=== PATIENT | male | born 2000 | race African-American/Black ===

== ENCOUNTER 2019-06-10 00:53 | Emergency (ER) | payer SELFPAY ==
[~2019-06-10] VITALS: Ht 177.8 cm; Wt 75.0 kg
[2019-06-10] MEDS ORDERED: HYDR25CA PO (01:10)
--- NOTE | 2019-06-10 01:11 | ED Psychosocial ---
General Stated Complaint: ANXIETY Source: patient, EMS Exam Limitations: no limitations History of Present Illness Date Seen by Provider: Jun 10, 2019 Time Seen by Provider: 00:50 Initial Comments Patient presents ER by EMS from the [facility] on . He is complaining of a panic attack. He says is having these before although not for many years. When he was in high school he said he took medications and depression. He says does not take any medicines now and has not follow-up with primary care doctor for many years. He does endorse some mild depression lately but denies any suicidal ideation. He says he is not looking for counseling. Says he was at home smoking a black and mild cigar when he started to feel his legs were weak his arms were shaky and his vision was changing. He denies any recent alcohol use although he does drink weekly typically liquor and wine.he denies any recreational drug use or other history of medical problems. Allergies and Home Medications Home Medications Hydroxyzine Pamoate 25 Mg Capsule, 25 MG PO Q6H PRN for ANXIETY Prescribed by: NITIN PAEZ on 06/10/19 0110 Patient Home Medication List Home Medication List Reviewed: Yes Review of Systems Constitutional: No chills, No diaphoresis EENTM: No ear discharge, No ear pain Respiratory: No cough, No short of breath Cardiovascular: No chest pain, No edema Gastrointestinal: No abdominal pain, No constipation, No diarrhea Genitourinary: No discharge, No dysuria Musculoskeletal: No back pain, No joint pain Skin: No pruritus, No rash Past Cnpjkrz-Sunthl-Ynmwvk Hx Patient Social History Alcohol Use: Occasionally Uses Alcohol Beverage of Choice: Wine, Cheap Liquor Recreational Drug Use: No Smoking Status: Current Everyday Smoker Type Used: Cigars 2nd Hand Smoke Exposure: No Recent Foreign Travel: No Contact w/Someone Who Travel: No Physical Exam Vital Signs - First Documented 06/10/19 00:53 Temp 36.6 Pulse 75 Resp 18 B/P (MAP) 162/92 (115) Pulse Ox 98 Capillary Refill : Height, Weight, BMI Height: '" Weight: lbs. oz. kg; BMI Method: General Appearance: WD/WN, no apparent distress HEENT: PERRL/EOMI, pharynx normal Neck: full range of motion, normal inspection Respiratory: lungs clear, normal breath sounds, no respiratory distress, no accessory muscle use Cardiovascular: normal peripheral pulses, regular rate, rhythm Peripheral Pulses: 2+ Radial Pulses (R), 2+ Radial Pulses (L) Gastrointestinal: non tender, soft Neurologic/Psychiatric: alert, normal mood/affect, oriented x 3 Appearance/Memory: appropriate appearance, appropriate insight, neat, no memory impairment Behavior/Eye Contact: cooperative, good eye contact, normal speech Thoughts/Hallucinations: normal thought pattern, no apparent hallucination Skin: warm/dry, other (round patches of hypo-pigmented skin anterior posterior trunk) Progress/Results/Core Measures Results/Orders Vital Signs/I&O 06/10/19 00:53 Temp 36.6 Pulse 75 Resp 18 B/P (MAP) 162/92 (115) Pulse Ox 98 Progress Progress Note : Time: 01:07 Progress Note Had a long discussion about behavioral therapy techniques how to use mild sedative such as Vistaril. We have encouraged him to follow-up with [facility]. Departure Impression Primary Impression: Panic attack Additional Impression: Tinea versicolor Disposition: HOME, SELF-CARE Condition: Stable Departure-Patient Inst. Decision time for Depature: 01:05 Patient Instructions: Cognitive-Behavioral Therapy, Panic Disorder (DC) Add. Discharge Instructions: At the first that you notice a panic attack starting remove yourself to a safe situation. If you are driving pullover. Focused on your breathing and perform some cognitive behavioral techniques as we discussed. Take a tablet of Vistaril every 6 hours as needed. It is a mild sedative. If you continue to have panic attacks then I would highly suggest you follow-up with a primary care doctor such as [facility]. For your skin you should curing pickling packer the cream that contains clotrimazole for athlete's foot or jock itch and apply it daily after bathing for 4 weeks. expect good results in about 6 months. Scripts Hydroxyzine Pamoate (Vistaril) 25 Mg Capsule 25 MG PO Q6H PRN for ANXIETY, #10 CAP 0 Refills Prov: NITIN PAEZ 06/10/19 NITIN PAEZ Jun 10, 2019 01:11 POS
[2019-06-10 01:19] VITALS: BP 162/92
== END 2019-06-10 01:19 | disposition home or self-care (01) ==
LOC: ER 00:55
DX: F41.0 Panic disorder [episodic paroxysmal anxiety] (principal); B36.0 Pityriasis versicolor; F32.9 Major depressive disorder, single episode, unspecified; F17.290 Nicotine dependence, other tobacco product, uncomplicated
CPT/HCPCS: 99283

== ENCOUNTER 2020-11-17 20:51 | Emergency (ER) | payer SELFPAY ==
[~2020-11-17] VITALS: Ht 177.8 cm; Wt 81.6 kg
[~2020-11-17 20:51] MED LIST: HYDR25CA PO
--- NOTE | 2020-11-17 21:21 | ED EENT ---
History of Present Illness General Chief Complaint: Cough/Cold/Flu Symptoms Stated Complaint: SORE THROAT/HEADACHE/COUGH Nursing Triage Note: PT AMBULATE TO ROOM 09 WITH C/O HEADACHE AND SORE THROAT SINCE THURSDAY. Source: patient Exam Limitations: no limitations History of Present Illness Date Seen by Provider: November 17, 2020 Time Seen by Provider: 21:08 Initial Comments This is a well-appearing 20-year-old male who presents to the ER with complaints of sore throat x2 days. States that the pain has been increasing and making it difficult to swallow. Has not taken anything for the pain prior to arrival. No ill contacts. No Covid exposures. Denies fever, shortness of breath, nausea, vomiting, diarrhea. Allergies and Home Medications Allergies Coded Allergies: No Known Drug Allergies (Unverified , 11/17/20) Home Medications Amoxicillin/Potassium Clav 1 Each Tablet, 1 EACH PO BID Prescribed by: KARIME KIRK on 11/17/202208 Hydroxyzine Pamoate 25 Mg Capsule, 25 MG PO Q6H PRN for ANXIETY Prescribed by: NITIN PAEZ on 06/10/19 0110 Patient Home Medication List Home Medication List Reviewed: Yes Review of Systems Review of Systems Constitutional: chills; No dizziness Eyes: No Symptoms Reported Ears: No Symptoms Reported Nose: no symptoms reported Mouth: no symptoms reported Throat: pain, painful swallowing Respiratory: cough; No phlegm, No short of breath, No wheezing Cardiovascular: no symptoms reported Gastrointestinal: no symptoms reported Musculoskeletal: no symptoms reported Skin: no symptoms reported Neurological: No Symptoms Reported Hematologic/Lymphatic: No Symptoms Reported Immunological/Allergic: no symptoms reported Past Kupqrqb-Elmhhk-Ulfwdb Hx Patient Social History Alcohol Use: Occasionally Uses Number of Drinks Today: CC Alcohol Beverage of Choice: Wine, Cheap Liquor Smoking Status: Former Smoker Type Used: Cigars, Electronic/Vapor 2nd Hand Smoke Exposure: No Recent Infectious Disease Expo: No Recent Hopitalizations: No Seasonal Allergies Seasonal Allergies: Yes Past Medical History Surgeries: No Respiratory: No Cardiac: No Neurological: No Genitourinary: No Gastrointestinal: No Musculoskeletal: No Endocrine: No HEENT: No Cancer: No Psychosocial: Yes ADD/ADHD, Depression Blood Disorders: No Physical Exam Vital Signs Vital Signs - First Documented 11/17/20 11/17/20 21:04 22:25 Temp 38.2 Pulse 83 Resp 18 B/P (MAP) 130/74 (92) Pulse Ox 99 O2 Delivery Room Air Height, Weight, BMI Height: '" Weight: lbs. oz. kg; 25.00 BMI Method: General Appearance: WD/WN, no apparent distress Eyes: bilateral eye normal inspection, bilateral eye PERRL, bilateral eye EOMI Ears: bilateral ear auricle normal, bilateral ear canal normal, bilateral ear TM normal Nose: normal inspection; No discharge Mouth/Throat: No excessive drooling; pharynx tenderness; No tonsillar exudate; tonsillar swelling (2+); No trismus; uvula swelling (no uvula deviation ); No voice changes Neck: full range of motion, supple, normal inspection, lymphadenopathy (R) (tonsillar ), lymphadenopathy (L) (tonsillar ) Cardiovascular: regular rate, rhythm, no murmur Respiratory: lungs clear, normal breath sounds, no respiratory distress, no accessory muscle use Gastrointestinal: normal bowel sounds, non tender, soft Neurologic/Psychiatric: no motor/sensory deficits, alert, normal mood/affect, oriented x 3 Skin: normal color, warm/dry Progress/Results/Core Measures Results/Orders Lab Results Laboratory Tests Test 11/17/20 21:10 Range/Units SARS-CoV-2 RNA (RT-PCR) Not Detected Not Detecte Group A Streptococcus Screen NEGATIVE NEGATIVE Micro Results Microbiology 11/17/20 Throat Culture - Preliminary, Resulted No Beta Strep isolated 11/17/20 Influenza Types A,B Antigen ([facility]) - Final, Complete My Orders Orders - KARIME KIRK [employer] OPERATOR Covid 19 Inhouse Test (11/17/20 21:18) Influenza A And B Antigens (11/17/20 21:18) Rapid Strep A Screen (11/17/20 21:18) Ketorolac Injection (Toradol Injection) (11/17/20 21:30) Methylprednisolone Acetate Inj (Depo-Med (11/17/20 22:00) Dexamethasone Injection (Decadron Inje (11/17/20 22:00) Amoxicillin/Clavulanate Tablet (Augmenti (11/17/20 22:00) Medications Given in ED Current Medications Medications Dose Ordered Sig/Serena Route Start Time Stop Time Status Last Admin Dose Admin Amoxicillin/ Clavulanate Potassium 875 mg ONCE ONCE PO 11/17/20 22:00 11/17/20 22:01 DC 11/17/20 22:07 875 MG Dexamethasone Sodium Phosphate 4 mg ONCE ONCE IM 11/17/20 22:00 11/17/20 22:01 DC 11/17/20 22:07 4 MG Ketorolac Tromethamine 60 mg ONCE ONCE IM 11/17/20 21:30 11/17/20 21:31 DC 11/17/20 21:35 60 MG Methylprednisolone Acetate 80 mg ONCE ONCE IM 11/17/20 22:00 11/17/20 22:01 DC 11/17/20 22:07 80 MG Vital Signs/I&O 11/17/20 11/17/20 11/17/20 21:04 21:12 22:25 Temp 38.2 Pulse 83 59 Resp 18 18 B/P (MAP) 130/74 (92) 131/72 (92) Pulse Ox 99 O2 Delivery Room Air Room Air Room Air Blood Pressure Mean: 92 Progress Progress Note : Progress Note Given Toradol 60mg IM for pain, reported improvement of pain at time of discharge. Given steroid injection and Augmentin prior to dismissal. To follow up with [facility] if symptoms are not improved by Thursday. Reviewed discharge POC and he is agreeable with plan. Departure Impression Primary Impression: Strep throat Disposition: HOME, SELF-CARE Condition: Improved Departure-Patient Inst. Decision time for Depature: 21:59 Referrals: NO,LOCAL PHYSICIAN (PCP/Family) Primary Care Physician Patient Instructions: Strep Throat (DC) Add. Discharge Instructions: Plan: 1. May use Tylenol 650mg every 4-6 hours or Ibuprofen 600mg every 6 hours as needed for pain. 2. Use warm salt water gargles 3-4x a day for pain. 3. Take antibiotics as directed and complete full course even if you begin to feel better. 4. Follow up with [facility] if your symptoms persist by Thursday. 5. Return to ER if you experience any new, concerning, or worsening symptoms. All discharge instructions reviewed with patient and/or family. Voiced understanding. Scripts Amoxicillin/Potassium Clav (Augmentin 875-125 Tablet) 1 Each Tablet 1 EACH PO BID for 7 Days, #14 TAB 0 Refills Prov: KARIME KIRK [employer] OPERATOR 11/17/20 KARIME KIRK [employer] OPERATOR November 17, 2020 21:21
[2020-11-17] MEDS ORDERED: KETOROLAC 60 MG/2 ML VIAL IM ONE (21:30)
[2020-11-17] MEDS ORDERED: AUGMENTIN 875 MG TAB (AMOXICILLIN/CLAVULANATE) PO ONE (22:00)
[2020-11-17] MEDS ORDERED: methylPREDNISolone 80 MG/ML (DEPO MEDROL) VIAL IM ONE (22:00)
[2020-11-17] MEDS ORDERED: AMOX-358 PO (22:09)
[2020-11-17 22:25] VITALS: BP 131/72
== END 2020-11-17 22:25 | disposition home or self-care (01) ==
LOC: EDUNIT# 20:51 → ER 20:54
DX: J02.0 Streptococcal pharyngitis (principal); Z87.891 Personal history of nicotine dependence
CPT/HCPCS: 87430; 87636; 87804